=== PATIENT | male | born 1950 | race Caucasian/White ===

== ENCOUNTER 2024-06-18 05:37 | Emergency (ER) | payer MEDICARE, OTHER, SELFPAY ==
[2024-06-18 05:44] VITALS: BP 140/54
[2024-06-18 05:46] VITALS: BP 140/54
[2024-06-18 05:59] VITALS: BMI 32.0
[2024-06-18 06:00] VITALS: BP 143/77
[2024-06-18 06:22] LABS: % Basophils 0.5 % (0-2); % Eosinophils 0.9 % (0-6); % Immature Granulocytes 0.4 % (0-0.5); % Lymphocytes 18.9 % (20.5-51.1); % Monocytes 13.8 % (1.7-9.3); % Neutrophils 65.5 % (42.2-75.2); Absolute Basophils 0.1 10^3/uL (0-0.2); Absolute Eosinophils 0.1 10^3/uL (0-0.7); Absolute Immature Granulocytes 0.1 10^3/uL (0-0.05); Absolute Lymphocytes 2.4 10^3/uL (1.2-3.4); Absolute Monocytes 1.8 10^3/uL (0.1-0.6); Absolute Neutrophils 8.3 10^3/uL (1.4-6.5); Hematocrit 41.4 % (39.0-52.0); Hemoglobin 15.3 g/dL (13.0-18.0); Mean Corpuscular Hgb 34.5 pg (27.0-31.0); Mean Corpuscular Volume 93.5 fL (80.0-94.0); Mean Platelet Volume 9.9 fL (7.4-10.4); Nucleated Red Blood Cells % 0 % (-); Platelet Count 224 10^3/uL (130-400); Red Blood Cell Count 4.43 10^6/uL (4.70-6.10); Red Cell Dist. Width 13.4 % (11.5-14.5); White Blood Cell Count 12.7 10^3/uL (4.8-10.8)
--- NOTE | 2024-06-18 06:33 | ED.GENMED ---
History of Present Illness
General
Chief Complaint: Abdominal Pain
Time Seen by Provider: 06/18/24 06:22
History of Present Illness
History of Present Illness:
TIME OF INITIAL ENCOUNTER: 6:30 AM
HPI: Patient presents with relatively abrupt onset abdominal pain. 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 He was managed at a hospital in [place]. Since then he
also had a cholecystectomy. The pain is slightly more on the right side.
EXAM:
GENERAL: Well appearing but but appears slightly uncomfortable
HEENT: Moist oral mucosa
CARDIOVASCULAR: No murmurs, normal heart rate, regular rhythm, No chest wall tenderness
PULMONARY: No respiratory distress, breath sounds are clear and equal
ABDOMEN: Soft with no peritoneal signs, very mild right sided abdominal tenderness
NEUROLOGIC: Excellent strength all extremities, no coordination deficits
PSYCHIATRIC: Appropriate mental status, normal insight and judgement
EXTREMITIES: Nontender, no edema, moves all extremities equally
SKIN: No rash, no lesions
NUMBER AND COMPLEXITY OF PROBLEMS ADDRESSED AT THE ENCOUNTER
� Chronic conditions affecting care: Has had bowel resection, pancreatitis, cholecystectomy
� Acute Exacerbation and/or Progression of Chronic Illness: This is an acute problem
� Differential Diagnosis includes: Mesenteric ischemia, epiploic appendagitis, CBD stone, ACS
AMOUNT AND/OR COMPLEXITY OF DATA TO BE REVIEWED AND ANALYZED
� I performed an independent evaluation of and my interpretation is:
EKG: Sinus 64, normal axis, no acute ST abnormality
CT: CT imaging unremarkable
X-rays:
Laboratory Studies: White count 12.7, hemoglobin normal, creatinine 1.4 with GFR 59, lactic 1.4, total bili 1.5 and AST and ALT are 157 and 117 respectively, normal lipase
Other:
� Review of other/old records: No old records available for review in [facility]
� Clinical information was obtained by an independent historian: None needed
� Prescriptions/Medications Considered but not given:
� Further testing considered but not performed:
RISK OF COMPLICATIONS AND/OR MORBIDITY OR MORTALITY OF PATIENT MANAGEMENT
� Social determinants of health affecting care:
� Discussion with other providers:
� Escalation of care including admission/observation vs risk of discharge considered: The patient had relatively abrupt onset abdominal pain. 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
His symptoms are not as bad now as they were then. Giving Dilaudid for pain as well as IV fluids. CT imaging obtained.
ANY OTHER UPDATES:
8:50 AM: CT imaging reassuring. Mild leukocytosis noted. Minimal LFT abnormality of doubtful clinical significance. The patient was given Dilaudid earlier and he appears improved. I told him not to drive. Unclear etiology of patient's symptoms.
Phy Exam
Physical Exam
Physical Exam:
See HPI
Course
Orders/Labs/Results
Orders:
Orders
06/18/24 06:01
Electrocardiogram (*1) Urgent
Reason for Study: Abdominal Pain
EKG- Treatment ONCE
06/18/24 06:02
Complete Blood Count/With Diff Urgent
Comprehensive Metabolic Panel Urgent
Lipase Urgent
06/18/24 06:10
Lactic Acid Urgent
06/18/24 06:40
0.9% Sodium Chloride 1000 ml [Nss] 1,000 ml IV BOLUS
HYDROmorphone [Dilaudid] 1 mg IV NOW STA
Ondansetron Injectable [Zofran] 4 mg IV NOW STA
06/18/24 06:41
CT Abd/pelvis W Iv Cont Urgent
Comment:
Reason For Exam: pain; h/o splenic infarct, partial colectomy
Abnormal Lab Results
06/18/24
06:02
WBC 12.7 H 10^3/uL
(4.8-10.8)
RBC 4.43 L 10^6/uL
(4.70-6.10)
MCH 34.5 H pg
(27.0-31.0)
Abs Immat Gran (auto) 0.1 H 10^3/uL
(0-0.05)
Absolute Neuts (auto) 8.3 H 10^3/uL
(1.4-6.5)
Absolute Monos (auto) 1.8 H 10^3/uL
(0.1-0.6)
Lymphocytes % 18.9 L %
(20.5-51.1)
Monocytes % 13.8 H %
(1.7-9.3)
Chloride 109 H mmol/L
(98-107)
BUN 24 H mg/dl
(9-20)
Creatinine 1.4 H mg/dL
(0.7-1.3)
Glucose 124 H mg/dl
(70-99)
Total Bilirubin 1.5 H mg/dl
(0.2-1.3)
AST 157 H U/L
(17-59)
ALT 117 H U/L
(0-50)
06/18/24 06:02
06/18/24 06:02
Vital Signs
Initial and Last Documented VS:
Initial Vital Signs
Temp Pulse Resp BP Pulse Ox
36.6 C 64 16 140/54 96
06/18/24 05:44 06/18/24 05:44 06/18/24 05:44 06/18/24 05:44 06/18/24 05:44
Last Documented Vital Signs
Temp Pulse Resp BP Pulse Ox
36.6 C 68 19 147/66 95
06/18/24 05:44 06/18/24 07:00 06/18/24 07:00 06/18/24 07:00 06/18/24 07:00
*Critical Care Note
Total Time (30-74mins, 75-104mins- exclusive of procedures): Not Applicable
ED Attending Note
-
Portions of this chart may have been created with voice recognition software.� Occasional wrong word or��sound alike� substitutions may have occurred due to the inherent limitations of voice recognition software.
Discharge Plan
Departure
Referrals:
UNKNOWN - PT DOES,NOT KNOW [Family Provider] -
Interventions
Interventions:
*Risk Screen - Suicide Last Done: 06/18/24 05:44
*General Assessment Last Done: 06/18/24 06:15
*Neglect/Abuse Screening Last Done: 06/18/24 05:44
*ED- Fall Risk Assessment Last Done: 06/18/24 05:44
*ED COVID-19 Vaccine History Last Done: 06/18/24 05:44
DB-Ldvbuw-Etqewhgyge Assessment Last Done: 06/18/24 06:15
Discharge Date and Time
Print Language: TUVALU[place]
[2024-06-18 06:37] LABS: Lactic Acid 1.4 mmol/L (0.7-2.0)
[2024-06-18 06:38] LABS: ALT (SGPT) 117 U/L (0-50); AST (SGOT) 157 U/L (17-59); Albumin 3.8 g/dl (3.5-5.0); Alkaline Phosphatase 55 U/L (38-126); Blood Urea Nitrogen 24 mg/dl (9-20); Calcium 9.4 mg/dl (8.4-10.2); Carbon Dioxide 23 mmol/L (22-30); Chloride 109 mmol/L (98-107); Estimated Creatinine Clearance 59 ml/min; Glucose 124 mg/dl (70-99); Lipase 73 U/L (23-300); Potassium 4.3 mmol/L (3.5-5.1); Sodium 140 mmol/L (135-145); Total Bilirubin 1.5 mg/dl (0.2-1.3); Total Protein 6.8 g/dl (6.3-8.2); eGFR 53.07
[2024-06-18 07:00] VITALS: BP 147/66
[2024-06-18] MEDS: ZOFRAN 4 MG IV (07:03)
[2024-06-18] MEDS: DILAUDID 1 MG IV (07:03)
[2024-06-18] MEDS: NSS 1000 IV (07:04)
== END 2024-06-18 09:33 | disposition home or self-care (01) ==
LOC: EMR 05:37
PROVIDERS: Emergency Medicine; EMERGENCY PHYSICIAN Emergency Medicine
DX: R10.9 Unspecified abdominal pain (principal); Z86.16 Personal history of COVID-19; Z98.0 Intestinal bypass and anastomosis status; Z90.49 Acquired absence of other specified parts of digestive tract
CPT/HCPCS: 99284; 96375; 96361; 96374; 74177; 80053; 83605; 83690; 85025; 93005; Q9967